=== PATIENT | female | born 1990 ===

== ENCOUNTER 2017-06-22 09:10 | Emergency (ER) | payer BC ==
[2017-06-22 10:04] LABS: SQUAMOUS EPITHIAL 1 /hpf (0-5); URINE BILIRUBIN NEGATIVE (NEGATIVE); URINE BLOOD NEGATIVE (NEGATIVE); URINE CLARITY Clear (Clear); URINE COLOR Straw (YELLOW); URINE GLUCOSE (UA) NORMAL (Normal); URINE LEUKOCYTE ESTERASE NEG Leu/uL (Negative); URINE NITRATE NEGATIVE (NEGATIVE); URINE PROTEIN NEGATIVE (NEGATIVE); URINE UROBILINOGEN NORMAL mg/dL (0.2-1.0)
[2017-06-22] MEDS ORDERED: Iohexol 240 (50 ml) PO STA (10:19)
[2017-06-22] MEDS ORDERED: Sodium Chloride 0.9% 1,000 ML IV ONE (10:19)
[2017-06-22] MEDS ORDERED: Sodium Chloride 0.9% 1,000 ML ONE (10:36)
[2017-06-22] MEDS ORDERED: Iohexol 240 (50 ml) ONE (10:36)
--- NOTE | 2017-06-22 10:38 | C.PDOC ---
History Of Present Illness 27-year-old female, presents to the emergency department with complaints of one- month duration of paralumbar back pain that worsened today. Patient was seen by PMD for same complaint. No or H. pylori. Patient is pending GI appointment next week. She notes associated bloating, but unknown weight loss. Denies change in bowel habits. No fever. Time Seen by Provider: 06/22/17 09:20 Chief Complaint (Nursing): Abdominal Pain History Per: Patient History/Exam Limitations: no limitations Onset/Duration Of Symptoms: Days, Waxing/Waning Severity: Moderate Past Medical History Reviewed: Historical Data, Nursing Documentation, Vital Signs Vital Signs: Last Vital Signs Temp 98.3 F 06/22/17 12:04 Pulse 104 H 06/22/17 14:45 Resp 22 06/22/17 14:45 BP 110/77 06/22/17 14:45 Pulse Ox 96 06/22/17 14:45 Surgical History: Family History: States: No Known Family Hx - Social History Hx Alcohol Use: No Hx Substance Use: No - Immunization History Hx Tetanus Toxoid Vaccination: No Hx Influenza Vaccination: No Hx Pneumococcal Vaccination: No Review Of Systems Except As Marked, All Systems Reviewed And Found Negative. Constitutional: Negative for: Fever Cardiovascular: Negative for: Chest Pain Respiratory: Negative for: Shortness of Breath Gastrointestinal: Negative for: Nausea, Vomiting, Abdominal Pain Musculoskeletal: Positive for: Back Pain (paralumbar). Negative for: Neck Pain Neurological: Negative for: Weakness, Numbness, Headache, Dizziness Physical Exam - Physical Exam Appears: Non-toxic, No Acute Distress (Mild distress) Skin: Warm, Dry, No Rash Head: Atraumatic, Normacephalic Eye(s): bilateral: Normal Inspection, PERRL Nose: Normal Oral Mucosa: Moist Lips: Normal Appearing Neck: Normal ROM Chest: Symmetrical Cardiovascular: Rhythm Regular, No Murmur Respiratory: Normal Breath Sounds, No Accessory Muscle Use Back: Paraspinal Tenderness (lumbar) Extremity: Normal ROM Neurological/Psych: Oriented x3, Normal Speech ED Course And Treatment - Laboratory Results Result Diagrams: 06/22/17 11:02 06/22/17 11:02 O2 Sat by Pulse Oximetry: 99 (on RA) Pulse Ox Interpretation: Normal Reevaluation Time: 15:52 Reassessment Condition: Improved (RESULTS COPIES GIVEN. ADVISED GI SCHEDULED) Disposition Counseled Patient/Family Regarding: Studies Performed, Diagnosis, Need For Followup - Disposition Referrals: YOUR,GI DOCTOR [Other] Disposition: HOME/ ROUTINE Disposition Time: 15:53 Condition: IMPROVED Prescriptions: Magnesium Citrate [[facility] Magnesium Citrate] 300 ml PO ONCE #1 bottle Metoclopramide [Reglan] 1 tab PO TID PRN #25 tab PRN Reason: Nausea/Vomiting Sucralfate [Carafate] 1 gm PO QID #30 tab Instructions: Abdominal Pain (ED), Constipation (ED) Forms: [employer] (German), Work Excuse - Clinical Impression Clinical Impression: Abdominal pain, Constipation - Scribe Statement The provider has reviewed the documentation as recorded by the Scribe (Lew Michaels) All medical record entries made by the Scribe were at my direction and personally dictated by me. I have reviewed the chart and agree that the record accurately reflects my personal performance of the history, physical exam, medical decision making, and the department course for this patient. I have also personally directed, reviewed, and agree with the discharge instructions and disposition.
[2017-06-22 11:07] LABS: BASO % 0.3 % (0.0-2.0); EOS # 0.1 K/uL (0.0-0.7); EOS % 1.6 % (0.0-4.0); HEMOGLOBIN 13.1 g/dL (11.0-16.0); LYMPH # 0.3 K/uL (1.0-4.3); LYMPH % 4.5 % (20.0-40.0); MEAN CELL VOLUME 86.7 fL (81.0-99.0); MEAN CORPUSCULAR HEMOGLOBIN 30.3 pg (27.0-31.0); MEAN PLATELET VOLUME 9.1 fL (7.2-11.7); MONO # 0.6 K/uL (0.0-0.8); NEUT # 5.3 K/uL (1.8-7.0); NEUT % 84.6 % (50.0-75.0); RBC 4.33 Mil/uL (3.80-5.20); RED CELL DISTRIBUTION WIDTH 12.1 % (11.5-14.5); WHITE BLOOD COUNT 6.3 K/uL (4.8-10.8)
[2017-06-22 11:19] LABS: PLATELET COUNT 140 K/uL (130-400)
[2017-06-22 11:20] LABS: ALBUMIN 4.5 g/dL (3.5-5.0); ALT/SGPT 38 U/L (9-52); AST/SGOT 32 U/L (14-36); BLOOD UREA NITROGEN 12 mg/dL (7-17); CALCIUM 9.4 mg/dl (8.6-10.4); GFR AFRICAN-AMERICAN > 60; GFR NON-AFRICAN AMERICAN > 60; LIPASE 53 U/L (23-300)
[2017-06-22 11:22] LABS: ALB/GLOB RATIO 1.1 (1.0-2.1)
[2017-06-22 11:30] LABS: ANISOCYTOSIS SLIGHT; BANDS 1 % (0-2); EOSINOPHIL 1 % (0-4); LYMPHOCYTE 5 % (20-40); MONOCYTE 5 % (0-10); NEUTROPHIL 87 % (50-75); PLATELET ESTIMATE NORMAL (NORMAL); REACTIVE LYMPHOCYTES 1 % (0-0); TOTAL CELLS COUNTED 100
[2017-06-22] MEDS ORDERED: Iodixanol 320 MG/ML 100 ML BOTTLE IV ONE (14:23)
[2017-06-22] MEDS ORDERED: DiphenhydrAMINE 50 mg/ml Inj ONE (14:50)
[2017-06-22] MEDS ORDERED: DiphenhydrAMINE 50 mg/ml Inj IVP STA (14:50)
--- NOTE | 2017-06-22 15:38 | CT ---
PROCEDURE: CT Abdomen and Pelvis with oral and IV contrast. HISTORY: abd pain PERIUMB COMPARISON: None available TECHNIQUE: Contiguous axial images of the abdomen and pelvis. Oral and IV contrast was administered. Coronal and Sagittal reformats generated and reviewed. Contrast dose: 100 mL Visipaque IV Radiation dose: Total exam DLP = 590.45 mGy-cm. This CT exam was performed using one or more of the following dose reduction techniques: Automated exposure control, adjustment of the mA and/or kV according to patient size, and/or use of iterative reconstruction technique. FINDINGS: LOWER THORAX: No visible consolidation, pleural effusion, or pneumothorax. LIVER: Hepatomegaly. GALLBLADDER AND BILE DUCTS: Unremarkable. PANCREAS: Unremarkable. SPLEEN: Unremarkable. ADRENALS: Unremarkable. KIDNEYS AND URETERS: The kidneys enhance symmetrically. No hydronephrosis or obstructing renal calculus. BLADDER: The urinary bladder appears unremarkable. REPRODUCTIVE: Lobulated appearance of the uterus likely related to fibroids. APPENDIX: The appendix is not identified. No secondary signs of acute appendicitis identified. BOWEL: The stomach is nondistended. The bowel loops appear within normal limits of caliber without evidence of intestinal obstruction. PERITONEUM: No significant free fluid. No definite free air. LYMPH NODES: No bulky lymphadenopathy identified. VASCULATURE: No aortic aneurysm. BONES: No acute osseous abnormality is detected. OTHER FINDINGS: 8 mm fat containing umbilical hernia. IMPRESSION: Hepatomegaly. Probable fibroid uterus. Recommend further evaluation with pelvic ultrasound. 8 mm fat containing umbilical hernia.
[2017-06-22 16:50] VITALS: BP 110/71; PULSE 100; RESP 18; TEMP 98; O2SAT 100
== END 2017-06-22 16:50 | disposition home or self-care (01) ==
LOC: C.ER 09:10
DX: K59.00 Constipation, unspecified (principal); R10.9 Unspecified abdominal pain
CPT/HCPCS: 74177; 80053; 81001; 83690; 85025; 96361; 96374; 96375; 99285; J1200; J2270; J2405; J7040; Q9966; Q9967